=== PATIENT | male | born 1995 | race Hispanic/Latino ===

== ENCOUNTER 2017-09-19 03:07 | Emergency (ER) | payer BC, OTHER ==
[2017-09-19] MEDS ORDERED: Lidocaine 2% w Epi 1:100,000 Inj IJ ONE (04:05)
--- NOTE | 2017-09-19 04:07 | ED PDOC ---
HPI: Trauma/Fall - HPI Time Seen by Provider: 09/19/17 03:46 Chief Complaint (Nursing): ENT Problem History Per: Patient History/Exam Limitations: no limitations Onset/Duration Of Symptoms: Hrs (1h) Associated Symptoms: denies: Dizziness, LOC, Seizure Additional Complaint(s): 22 yo ,m, no significant PMHx who presents to ED for evaluation of a fall. Patient reports he was coming from [place] to [place] 3:30 AM and on the path station there was snow and he tripped and fell down landing to the front landing over his face and left ear, resulting in a chin laceration and left ear bleeding. Patient reports he was alone, some witness on the path station were trying to help him. He denies any symptoms prior the event and denies subsequent dizziness, confusion, weakness, chest pain,SOB. Patient reports that he had about 5 drinks last night and denies to be drunk or dizziness before the fall. Patient reports he had Tdap shot before and states he does not need it now. - Fall Fall:Prior To Injury: Tripped. denies: Passed Out Past Medical History Vital Signs: Last Vital Signs Temp 98.6 F 09/19/17 10:09 Pulse 101 H 09/19/17 10:09 Resp 19 09/19/17 10:09 BP 125/69 09/19/17 10:09 Pulse Ox 99 09/30/17 08:00 - Medical History PMH: No Chronic Diseases - Family History Family History: States: No Known Family Hx - Allergies Allergies/Adverse Reactions: Allergies Allergy/AdvReac Type Severity Reaction Status Date / Time Penicillins Allergy RASH Verified 09/19/17 03:13 Review of Systems Constitutional: Negative for: Fever Cardiovascular: Negative for: Chest Pain Respiratory: Negative for: Cough Neurological: Negative for: Weakness, Confusion, Dizziness Physical Exam - Physical Exam Appears: Positive for: No Acute Distress Head Exam: Positive for: NORMOCEPHALIC (There is 2 cm chin laceration) Skin: Positive for: Normal Color ENT: Positive for: TM Is/Are (B/L TM are inctact), Hearing Is (normal b/l ), Other (There is abrasion over left ear external auditory canal with active bleeding. no mastoid TD) Neck: Positive for: Normal, Supple Cardiovascular/Chest: Positive for: Regular Rate, Rhythm. Negative for: Murmur Respiratory: Positive for: Normal Breath Sounds. Negative for: Crackles, Rales , Rhonchi Gastrointestinal/Abdominal: Positive for: Bowel Sounds, Soft. Negative for: Tenderness - Laboratory Results Result Diagrams: 09/19/17 07:30 - ECG O2 Sat by Pulse Oximetry: 99 Medical Decision Making Medical Decision Makin:14 AM Initial impression FAll. chin laceration. left ear trauma Plan Laceration repair chin -IAC w/o contrast left ear. -Serum ETOH, Urine tox -CBC, PT/INR. PTT -Morphine 4 mg IV 6:10 AM IAC w/o Contrast left ear showed 1. Acute comminuted left mandibular condylar fracture with dislocation of the fractured condyle anteriorly medially along the articular eminence. Correlation with facial CT scan including mandible is recommended to evaluate for contralateral symphyseal or parasymphyseal mandibular fracture if clinically indicated. 2. There is gas and blood within the left TMJ. There is blood in the external auditory meatus. The left TMJ appears to communicate within the external auditory meatus secondary to fracture of the posterior aspect of the TMJ. 3. There is fracture of the articular surface of the temporal bone posterior laterally with multiple fracture fragments seen on image 47 series 5 the fracture extends into the bone surrounding the external auditory canal/meatus. Patient informed about results. Patient informed that will need Facial CT scan including mandible to evaluate for contralateral fracture. Procedures - Time-Out Type of Procedure: Laceration repair Site of Procedure: chin - Laceration/Wound Repair Face (Chin) Wound Length (cm): 2 Wound's Depth, Shape: linear Wound Explored: no foreign body removed Irrigated w/ Saline (ccs): 4 Anesthesia: 1% Lidocaine Volume Anesthetic (ccs): 1 Suture Size/Type: 5:0, nylon Number of Sutures: 4 Wound Complexity: Simple Disposition - Clinical Impression Clinical Impression: Mandibular fracture - Disposition Disposition Time: 10:09 Condition: FAIR Forms: [facility] (Swedish)
--- NOTE | 2017-09-19 06:06 | CT ---
EXAM: CT Orbits, Sella, Posterior Fossa or Auditory System Without Intravenous Contrast CLINICAL HISTORY: 22 years old, male; Injury or trauma; Fall; Initial encounter; Bleeding/hemorrhage; Head/scalp; Without loss of consciousness; Injury details: S/P fall bleeding from lt ear; Additional info: Left ear injury TECHNIQUE: Axial computed tomography images of the orbits, sella, posterior fossa or auditory system without intravenous contrast. All CT scans at this facility use one or more dose reduction techniques, viz.: automated exposure control; ma/kV adjustment per patient size (including targeted exams where dose is matched to indication; i.e. head); or iterative reconstruction technique. 1643 images are submitted. Coronal and sagittal reformatted images were created and reviewed. COMPARISON: No relevant prior studies available. FINDINGS: Sella: Unremarkable. Mastoid air cells: Unremarkable. No mastoid effusion. Auditory system: There is gas and blood within the left TMJ. There is blood in the external auditory meatus. Bones/joints: Acute comminuted left mandibular condylar fracture with dislocation of the fractured condyle anteriorly medially along the articular eminence. There is fracture of the articular surface of the temporal bone posterior laterally with multiple fracture fragments seen on image 47 series 5 the fracture extends into the bone surrounding the external auditory canal/meatus. The left TMJ appears to communicate within the external auditory meatus secondary to fracture of the posterior aspect of the TMJ. Soft tissues: Unremarkable. Orbits: The globe and lens are intact. Sinuses: Patchy sinus disease. Patchy sinus disease. No air-fluid levels. Brain: The visualized portions of the brain appears normal. Other findings: There is gas along the left perimandibular region. Bilateral Laura cells. The ostiomeatal units are obscured by mucosal thickening and/or debris. IMPRESSION: 1. Acute comminuted left mandibular condylar fracture with dislocation of the fractured condyle anteriorly medially along the articular eminence. Correlation with facial CT scan including mandible is recommended to evaluate for contralateral symphyseal or parasymphyseal mandibular fracture if clinically indicated. 2. There is gas and blood within the left TMJ. There is blood in the external auditory meatus. The left TMJ appears to communicate within the external auditory meatus secondary to fracture of the posterior aspect of the TMJ. 3. There is fracture of the articular surface of the temporal bone posterior laterally with multiple fracture fragments seen on image 47 series 5 the fracture extends into the bone surrounding the external auditory canal/meatus.
[2017-09-19] MEDS ORDERED: Sodium Chloride 0.9% 1,000 ML IV STA (06:18)
[2017-09-19] MEDS ORDERED: Morphine 4 MG/ML VIAL ONE (06:54)
--- NOTE | 2017-09-19 07:18 | ED PDOC ---
- Laboratory Results Result Diagrams: 09/19/17 07:30 - ECG O2 Sat by Pulse Oximetry: 99 (RA) Pulse Ox Interpretation: Normal Medical Decision Making Medical Decision Making: Time: --07:00 Reassess --patient signed out to the provider by Dr. Dunlap pending ct maxillofacial w/o contrast --07:50 EXAM: CT Maxillofacial Without Intravenous Contrast FINDINGS: Bones/joints: There is acute comminuted displaced fracture of the left mandibular condyle with dislocation of the fractured condyle medially and anteriorly. No contralateral mandibular fracture is identified. There is fluid, blood and gas in the left TMJ. There is acute comminuted fracture of the posterior fall off left TMJ duct communicates with the left external auditory meatus. There are left TMJ intra-articular fragments. Soft tissues: There is right chin soft tissue swelling and possible laceration. Lymph nodes: Bilateral cervical chain lymph nodes. Orbits: The globe and lens are intact. Sinuses: Moderate patchy maxillary sinus disease. No air-fluid levels. Mastoid air cells: The mastoid air cells are clear bilaterally. The ossicles are aligned bilaterally. The tympanic membranes are normal. The left middle and inner ear structures appears unremarkable bilaterally. Brain: The visualized portions of the brain appears unremarkable. IMPRESSION: There is acute comminuted displaced fracture of the left mandibular condyle with dislocation of the fractured condyle medially and anteriorly. Left TMJ intra-articular blood gas and fracture fragments. --8:51 discussed with ENT, Dr. Moise, states that fracture of temporal and/or mandibular bone,even if it extends to the auditory canal, does not need emergent closure. he states patient can be referred to omfs for evaluation of mandibular fraction as describe. Calls have been made to [facility] at [facility] who had requested ENT consultation and will call the provider back. -09:[address] Nava, [facility] at [facility]; he will accept the patient for transfer and will evaluate him there. case discussed with patient and family. Scribe Attestation: Documented by Tyrese Díaz acting as a scribe for Franklin Bustamante MD. Provider Attestation: All medical record entries made by the Scribe were at my direction and personally dictated by me. I have reviewed the chart and agree that the record accurately reflects my personal performance of the history, physical exam, medical decision making, and the department course for this patient. I have also personally directed, reviewed, and agree with the discharge instructions and disposition. Disposition Discussed With : Mati Moise (for consult) - Clinical Impression Clinical Impression: Mandibular fracture - POA Present On Arrival: None - Disposition Disposition: Other Institution ([facility] under Dr. Nava) Disposition Time: 09:00 Condition: FAIR Forms: [employer] (Estonian)
[2017-09-19 07:39] LABS: BASO % 0.3 % (0.0-2.0); EOS % 0.3 % (0.0-4.0); LYMPH # 2.1 K/uL (1.0-4.3); MEAN CELL VOLUME 86.5 fl (80.0-94.0); MEAN CORPUSCULAR HEMOGLOBIN 29.1 pg (27.0-31.0); MEAN CORPUSCULAR HGB CONC 33.7 g/dL (33.0-37.0); MEAN PLATELET VOLUME 9.3 fl (7.2-11.7); MONO # 0.7 K/uL (0.0-0.8); MONO % 6.2 % (0.0-10.0); NEUT # 8.1 K/uL (1.8-7.0); NEUT % 74.2 % (50.0-75.0); NRBC % 0.1 % (0.0-0.0); RBC 5.14 Mil/uL (4.40-5.90); RED CELL DISTRIBUTION WIDTH 13.2 % (11.5-14.5); WHITE BLOOD COUNT 10.9 K/uL (4.8-10.8)
--- NOTE | 2017-09-19 07:50 | CT ---
EXAM: CT Maxillofacial Without Intravenous Contrast CLINICAL HISTORY: 22 years old, male; Injury or trauma; Fall; Initial encounter; Bleeding/hemorrhage and blunt trauma (contusions or hematomas) and fracture, traumatic; Closed fracture; Mandible and temporomandibular joint; Jaw; Left; Injury details: F/u eam to previous iac exam; Additional info: Facial trauma TECHNIQUE: Axial computed tomography images of the face without intravenous contrast. All CT scans at this facility use one or more dose reduction techniques, viz.: automated exposure control; ma/kV adjustment per patient size (including targeted exams where dose is matched to indication; i.e. head); or iterative reconstruction technique. 647 images are submitted.Sagittal , axial and coronal MPR reformatted images are submitted in soft tissue and bone windows. CT maxillofacial with mandible COMPARISON: No relevant prior studies available. FINDINGS: Bones/joints: There is acute comminuted displaced fracture of the left mandibular condyle with dislocation of the fractured condyle medially and anteriorly. No contralateral mandibular fracture is identified. There is fluid, blood and gas in the left TMJ. There is acute comminuted fracture of the posterior fall off left TMJ duct communicates with the left external auditory meatus. There are left TMJ intra-articular fragments. Soft tissues: There is right chin soft tissue swelling and possible laceration. Lymph nodes: Bilateral cervical chain lymph nodes. Orbits: The globe and lens are intact. Sinuses: Moderate patchy maxillary sinus disease. No air-fluid levels. Mastoid air cells: The mastoid air cells are clear bilaterally. The ossicles are aligned bilaterally. The tympanic membranes are normal. The left middle and inner ear structures appears unremarkable bilaterally. Brain: The visualized portions of the brain appears unremarkable. IMPRESSION: There is acute comminuted displaced fracture of the left mandibular condyle with dislocation of the fractured condyle medially and anteriorly. Left TMJ intra-articular blood gas and fracture fragments.
[2017-09-19 07:55] LABS: PROTHROMBIN TIME 10.7 Seconds (9.8-13.1)
[2017-09-19 10:11] VITALS: BP 125/69; PULSE 101; RESP 19; TEMP 98.6
[2017-09-19 11:43] VITALS: O2SAT 99
== END 2017-09-19 10:12 | disposition short-term general hospital (02) ==
LOC: H.ER 03:07
DX: S01.81XA Laceration without foreign body of other part of head, initial encounter (principal); S02.609A Fracture of mandible, unspecified, initial encounter for closed fracture; S06.9X0A Unspecified intracranial injury without loss of consciousness, initial encounter; W10.2XXA Fall (on)(from) incline, initial encounter; Y92.85 Railroad track as the place of occurrence of the external cause; Z88.0 Allergy status to penicillin
CPT/HCPCS: 12011; 70480; 70486; 85025; 85610; 85730; 96374; 99283; G0480; J2270; J7040